=== PATIENT | female | born 1985 | race Caucasian/White ===

== ENCOUNTER 2023-05-09 09:45 | Outpatient (CLI) | payer BC, SELFPAY | END 2023-05-09 09:46 | disposition home or self-care (01) | PROVIDERS: PCP Physician Assistant Medical; Visit Provider Physician Assistant Medical | DX: E66.01 Morbid (severe) obesity due to excess calories (principal); E03.8 Other specified hypothyroidism; Z13.6 Encounter for screening for cardiovascular disorders | CPT/HCPCS: 80053; 80061; 82728; 84443 ==

== ENCOUNTER 2023-06-05 12:12 | Outpatient (CLI) | payer BC, SELFPAY | END 2023-06-05 12:13 | disposition home or self-care (01) | LOC: NFLDREF 06-10 11:53 | PROVIDERS: PCP Physician Assistant Medical; Referring Provider Physician Assistant Medical; Visit Provider Family Medicine | DX: D68.51 Activated protein C resistance (principal); R00.0 Tachycardia, unspecified; J06.9 Acute upper respiratory infection, unspecified; G47.33 Obstructive sleep apnea (adult) (pediatric); B99.9 Unspecified infectious disease; J32.9 Chronic sinusitis, unspecified | CPT/HCPCS: 85651 ==

== ENCOUNTER 2023-09-24 10:30 | Outpatient (CLI) | payer BC, SELFPAY ==
--- OUTSIDE RECORDS SUMMARY | 2023-09-24 10:34 | XMS_ITS | Encounter Summary ---
Author Name Unknown Organization [facility] Address [address] [address] Phone Care Team Providers Care Saas Architect Name Role Phone Unavailable Primary Care Provider Unavailabl e Encounter Details Date Type Department Care Team (Latest Contact Info) Description 08/27/2023 Travel Social History Tobacco Use Types Packs/Day Years Used Date Smoking Tobacco: Never Smokeless Tobacco: Never Sex and Gender Information Value Date Recorded Sex Assigned at Not on file Gender Identity Not on file Sexual Orientation Not on file Job Start Date Occupation Industry Not on file Not on file Not on file documented as of this encounter Plan of Treatment Not on file documented as of this encounter Visit Diagnoses Not on filedocumented in this encounter
--- OUTSIDE RECORDS SUMMARY | 2023-09-24 10:34 | XMS_ITS | Clinical Summary ---
Author Name Unknown Organization [facility] Address [address] [address] Phone Care Team Providers Care Control Officer Name Role Phone Unavailable Primary Care Provider Unavailabl e Allergies Active Allergy Reactions Criticality Noted Date Comments Amoxicillin Hives High 03/20/2023 Medications Medication Sig Dispensed Refills Start Date End Date Status gabapentin (Neurontin) 300 MG capsule 0 03/20/2023 Active Cetirizine HCl 10 MG capsule Cetirizine Oral po bid active 0 Active omeprazole (PriLOSEC) 40 MG delayed-release capsule as needed. 0 Active sulfamethoxazole-t rimethoprim (Bactrim DS, Septra DS) 800-160 MG oral tabletIndications: Infection Take 1 Tablet by mouth two times a day for 7 days. Indications: Infection 14 Tablet 0 08/27/2023 09/03/2023 fluconazole (Diflucan) 150 MG tabletIndications: Infection Take 1 Tablet by mouth one time for 1 dose. Indications: Infection 1 Tablet 0 08/27/2023 08/27/2023 predniSONE (Deltasone) 20 MG tabletIndications: Swelling of eyelid, left Take 2 Tablets by mouth one time a day for 5 days. Take with food. 10 Tablet 0 08/27/2023 09/01/2023 Encounters Date Type Department Care Team Description 08/27/2023 10:00 AM INORGANIC CHEMIST Office Visit [facility] [address] [facility] [address] [place] [address] Joyce Carlton, HOBBER, NEWS COPY EDITOR Swelling of eyelid, left (Primary Dx) 08/27/2023 Travel from Last 3 Months Social History Tobacco Use Types Packs/Day Years Used Date Smoking Tobacco: Never Smokeless Tobacco: Never Tobacco Cessation:Counseling Given: Not Answered Sex and Gender Information Value Date Recorded Sex Assigned at Not on file Gender Identity Not on file Sexual Orientation Not on file Job Start Date Occupation Industry Not on file Not on file Not on file Obstetrics History Last Filed Vital Signs Vital Sign Reading Time Taken Comments Blood Pressure 118/80 08/27/2023 9:58 AM INORGANIC CHEMIST Pulse 89 08/27/2023 9:58 AM INORGANIC CHEMIST Temperature 37.5 ??C (99.5 ??F) 08/27/2023 9:58 AM CS T Respiratory Rate 18 08/27/2023 9:58 AM INORGANIC CHEMIST Oxygen Saturation 98% 08/27/2023 9:58 AM INORGANIC CHEMIST Inhaled Oxygen Concentration - - Weight 118.4 kg (261 lb 0.4 oz) 08/27/2023 9:58 AM INORGANIC CHEMIST Height - - Body Mass Index - - Plan of Treatment Health Maintenance Due Date Last Done Comments Cervical Cancer Screening 1983 Hepatitis B Vaccine (Standin g Order) (1 of 3 - 3-dose series) 1983 Last pap w/ HPV Testing 1983 Last pap w/o HPV Testing 1983 MAMMO,SCREEN 1983 COVID-19 Vaccine (#1) 1983 PERTUSSIS (Standing Order) 2002 TETANUS (Standing Order) 2002 Influenza Vaccine Seasonal (Standing Order) (#1) 2023 HPV Vaccine (Standing Order) Aged Out No longer eligible based on patient's age to complete this topic Pneumococcal/PCV20 Vaccine: Pediatrics (2-5 yrs) and At-Risk Patients (6-64 yrs) (Standing Order) Aged Out No longer eligible b ased on patient's age to complete this topic
--- OUTSIDE RECORDS SUMMARY | 2023-09-24 10:35 | XMS_ITS | Encounter Summary ---
Author Name Unknown Organization [facility] Address [address] [address] Phone Care Team Providers Care Treating Engineer Helper Name Role Phone Unavailable Primary Care Provider Unavailabl e Reason for Visit * Reason Comments Eye Problem Left eyelid - starte d on the - Encounter Details Date Type Department Care Team (Late st Contact Info) Description 08/27/2023 10:00 AM STAIN APPLICATOR Office Visit [facility] [address] [facility] [facility] [address] [place] [address] Joyce Carlton APRN, LIGHT OUT EXAMINER [address] [place] [address] Swelling of eyelid, left (Primary Dx) Social History Tobacco Use Types Packs/Day Years Used Date Smoking Tobacco: Never Smokeless Tobacco: Never Tobacco Cessation:Counseling Given: Not Answered Sex and Gender Information Value Date Recorded Sex Assigned at Not on file Gender Identity Not on file Sexual Orientation Not on file Job Start Date Occupation Industry Not on file Not on file Not on file documented as of this encounter Last Filed Vital Signs Vital Sign Reading Time Taken Comments Blood Pressure 118/80 08/27/2023 9:58 AM STAIN APPLICATOR Pulse 89 08/27/2023 9:58 AM STAIN APPLICATOR Temperature 37.5 ??C (99.5 ??F) 08/27/2023 9:58 AM CS T Respiratory Rate 18 08/27/2023 9:58 AM STAIN APPLICATOR Oxygen Saturation 98% 08/27/2023 9:58 AM STAIN APPLICATOR Inhaled Oxygen Concentration - - Weight 118.4 kg (261 lb 0.4 oz) 08/27/2023 9:58 AM STAIN APPLICATOR Height - - Body Mass Index - - documented in this encounter Ordered Prescriptions Prescription Sig Dispensed Refills Start Date End Da predniSONE (Deltasone) 20 MG tabletIndications:Swell ing of eyelid, left Take 2 Tablets by mouth one time a day for 5 days. Take with food. 10 Tablet 0 08/27/2023 09/01/2023 fluconazole (Diflucan) 150 MG tabletIndications:Infec tion Take 1 Tablet by mouth one time for 1 dose. Indications: Infection 1 Tablet 0 08/27/2023 08/27/2023 sulfamethoxazole-trimet hoprim (Bactrim DS, Septra DS) 800-160 MG oral tabletIndications:Infec tion Take 1 Tablet by mouth two times a day for 7 days. Indications: Infection 14 Tablet 0 08/27/2023 09/03/2023 documented in this encounter Progress Notes * Joyce Carlton, COMMUNITY RELATIONS SPECIALIST, LIGHT OUT EXAMINER - 08/27/2023 10:00 AM CST Chief Complaint Patient presents with ??? Eye Problem Left eyelid - started on the - History of Present Illness: Soni Foster is a 38 year old female presenting with complaint of having left eyelid swelling and redness. Patient reports on [place] she wore some old eyeliner and noticed she had some increase inflammation so she took it off and wash it off. Reports she woke up after that with increasedswelling in her left eye lid. Reports the swelling is not resolving. Reports she did a video visit yesterday and they prescribed an ointment for possible stye that she started to use. Reports she is staying here in [place] area at her cabin and reports the redness and swelling has continued. She has been using some moist compresses on there and is not wearing any make-up. Denies fever, chills, eye discharge or vision problems Review of Systems Constitutional: Negative for chills and fever. Eyes: Negative for discharge, redness and visual disturbance. Left eyelid swelling No past medical history on file. No past surgical history on file. Current Outpatient Medications Medication Sig ??? gabapentin (Neurontin) 300 MG capsule ??? Cetirizine HCl 10 MG capsule Cetirizine Oral po bid active ??? omeprazole (PriLOSEC) 40 MG delayed-release capsule as needed. No current facility-administered medications for this visit. Amoxicillin Social History Tobacco Use ??? Smoking status: Never ??? Smokeless tobacco: Never Substance Use Topics ??? Alcohol use: Not on file Objective: Vitals: 08/27/23 0958 BP: 118/80 Pulse: 89 Temp: 37.5 ??C (99.5 ??F) TempSrc: Tympanic Resp: 18 Weight: 261 lb 0.4 oz (118.4 kg) SpO2: 98% Physical Exam Constitutional: General: She is not in acute distress. Eyes: Conjunctiva/sclera: Conjunctivae normal. Comments: Left eyelid swelling, erythema, inflammation Cardiovascular: Rate and Rhythm: Normal rate and regular rhythm. Pulmonary: Effort: Pulmonary effort is normal. Breath sounds: Normal breath sounds and air entry. Neurological: Mental Status: She is alert. Psychiatric: Behavior: Behavior is cooperative. ASSESSMENT/PLAN: (H02.846) Swelling of eyelid, left (primary encounter diagnosis) Prescribed (Diflucan if needed for vaginitis) sulfamethoxazole-trimethoprim (Bactrim DS, Septra DS) 800-160 MG oral tablet Take 1 Tablet by mouthtwo times a day for 7 days. Indications: Infection ??? fluconazole (Diflucan) 150 MG tablet Take 1 Tablet by mouth one time for 1 dose. Indications: Infection ??? predniSONE (Deltasone) 20 MG tablet Take 2 Tablets by mouth one time a day for 5 days. Take with food. No current facility-administered medications for this visit. Discussed using moist compresses to the eye, use of antihistamine. Monitor for worsening symptoms and follow-up if symptoms worsen or do not improve. Joyce Carlton APRN, LIGHT OUT EXAMINER 08/27/2023 N APPLICATOR documented in this encounter Plan of Treatment Not on file documented as of this encounter Visit Diagnoses Diagnosis Swelling of eyelid, left- Primary documented in this encounter Historical Medications * This list may reflect changes made after this encounter. Medication Sig Dispensed Refills Start Date End Date omeprazole (PriLOSEC) 40 MG delayed-release capsule as needed. 0 Cetirizine HCl 10 MG capsule Cetirizine Oral po bid active 0 gabapentin (Neurontin) 300 MG capsule 0 03/20/2023 added in this encounter
== END 2023-09-24 10:31 | disposition home or self-care (01) ==
PROVIDERS: PCP Physician Assistant Medical; Visit Provider Family Medicine
DX: Z01.818 Encounter for other preprocedural examination (principal); J32.9 Chronic sinusitis, unspecified; R11.2 Nausea with vomiting, unspecified; R50.9 Fever, unspecified
CPT/HCPCS: 80053; 83690; 87045; 87046; 87338; 87427; 87493; 87505; 87798

== ENCOUNTER 2023-11-05 10:45 | Outpatient (RCR) | payer BC, SELFPAY | END 2024-03-04 23:59 | disposition home or self-care (01) | PROVIDERS: PCP Physician Assistant Medical; Visit Provider Orthopaedic Surgery | DX: S83.282A Other tear of lateral meniscus, current injury, left knee, initial encounter (principal); S83.281A Other tear of lateral meniscus, current injury, right knee, initial encounter; Z51.89 Encounter for other specified aftercare; M17.11 Unilateral primary osteoarthritis, right knee | CPT/HCPCS: 97032; 97110; 97116; 97140; 97161 ==

== ENCOUNTER 2023-12-29 07:37 | Outpatient (CLI) | payer BC, SELFPAY ==
--- OUTSIDE RECORDS SUMMARY | 2023-12-29 07:40 | XMS_ITS | Clinical Summary ---
Author Name Unknown Organization [facility] [employer] [facility] Address [address] [address] Phone Care Team Providers Care Business Coordinator Name Role Phone Unavailable Primary Care Provider Unavailabl e Allergies Active Allergy Reactions Criticality Noted Date Comments Amoxicillin Hives High 03/20/2023 Medications Medication Sig Dispensed Refills Start Date End Date Status gabapentin (Neurontin) 300 MG capsule 03/20/2023 Active Cetirizine HCl 10 MG capsule Cetirizine Oral po bid active Active omeprazole (PriLOSEC) 40 MG delayed-release capsule as needed. Active Social History Tobacco Use Types Packs/Day Years [...] Comments Blood Pressure 118/80 08/27/2023 9:58 AM PRINTED CIRCUIT BOARD PREASSEMBLER Pulse 89 08/27/2023 9:58 AM PRINTED CIRCUIT BOARD PREASSEMBLER Temperature 37.5 ??C (99.5 ??F) 08/27/2023 9:58 AM CS T Respiratory Rate 18 08/27/2023 9:58 AM PRINTED CIRCUIT BOARD PREASSEMBLER Oxygen Saturation 98% 08/27/2023 9:58 AM PRINTED CIRCUIT BOARD PREASSEMBLER Inhaled Oxygen Concentration - - Weight 118.4 kg (261 lb 0.4 oz) 08/27/2023 9:58 AM PRINTED CIRCUIT BOARD PREASSEMBLER Height - - Body Mass Index - - Plan of Treatment Health Maintenance Due Date Last Done Comments Cervical Cancer Screening 1983 Last pap w/ HPV Testing 1983 Last pap w/o HPV Testing 1983 MAMMO,SCREEN 1983 Hepatitis B Vaccine (Standin g Order) (1 of 3 - 19+ 3-dose series) 2002 PERTUSSIS (Standing Order) 2002 TETANUS (Standing Order) 2002 COVID-19 Vaccine (2022-2 4 season) 2023 Influenza Vaccine Seasonal (Standing Order) (#1) 2023 HPV Vaccine (Standing Order) Aged Out No longer eligible based on patient's age to complete this topic Pneumococcal/PCV20 Vaccine: Pediatrics (2-5 yrs) and At-Risk Patients (6-64 yrs) (Standing Order) Aged Out No longer eligible b ased on patient's age to complete this topic
--- OUTSIDE RECORDS SUMMARY | 2023-12-29 07:40 | XMS_ITS | Data Portability ---
Author Name Unknown Address [address] [place] [address] Phone [phone] Organization [place] [facility], [facility] Address [address] [place] [address] Care Team Providers Care Quality Assurance Tech Name Role Phone JAKE NUNES Primary Care Provider JUANA MENESES Referring Provider Assessment Encounter Date Assessment Date Assessment LastModified by Organization Details LastModified Time 05/10/2020 05/10/2020 Today I spent a considerable amount of time discussing the patient's past medical and personal history, as well as performing a physical examination all of which is documented in it's entirety in the electronic health record. I reviewed the pathophysiology of the disorder, potential contributing and risk factors as well as treatment options to address their complaints. I reviewed their most current sleep study documentation. Today I reviewed treatment options to address obstructive sleep apnea. We touched on CPAP use and focused on the option of an oral appliance, which was the reason for today's visit. I do believe that a mandibular advancement oral appliance is a reasonable treatment option. Today we discussed risks and benefits of oral appliance therapy. Informed consent and cost of care was reviewed both verbally and in written form. We did begin the fabrication process today for a custom fit Dorsal mandibular advancement oral appliance. Today greater than 50% of the 60 minute visit was spent counseling and coordinating care. This may have included a review of the diagnosis, contributing factors, limitations and expectations, risks including lack of treatment efficacy, jaw symptoms, potential change in their dental occlusion, and patient intolerance of wearing the appliance. Cost of care and insurance coverage was reviewed and discussed with the patient. [email or web address] Not available 05/10/2020 16:44:26 06/22/2020 06/22/2020 Patient was seen today for follow-up and insertion of a Dorsal intraoral mandibular advancement appliance. Diagnosis and contributing factors were reviewed. Questions were answered. Today the intraoral appliance was fit to patient comfort. Specifically, adjustments were made to balance the occlusion and reduce the retention. Instructions on proper use and care were discussed/reviewed both written and verbally. Potential side effects were reviewed. The patient was advised to discontinue oral appliance use should they experience untoward side effects or be unable to return for follow-up care. The patient was advised to return in 3-4 weeks to reassess their progress and continue their treatment plan as previously outlined. Today greater than 50% of the 25 minute visit was spent counseling and coordinating care. This may have included a review of the diagnosis, contributing factors, home self-management strategies and the limitations and expectations. Not available 06/22/2020 16:47:03 06/26/2020 06/26/2020 I adjusted #7. Soni stated that the appliance felt much better. Not available 06/27/2020 07:31:06 07/12/2020 07/12/2020 Today I reviewed the diagnosis, contributing factors and treatment options. Questions were answered. Soni is interested to see if advancing the appliance could help with decreasing her intense dreams. I demonstrated how to adjust the appliance and advised her to advance in increments of 5 bilaterally as needed. At this time, the patient feels that the use of their mandibular advancement appliance has improved sleep quality, daytime tiredness and subjective report of snoring. At this time I've asked them to contact their sleep physician to consider updating a PSG/HST to objectively verify the effectiveness of the appliance. I've suggested that they follow-up with me to review the results of the study and determine the need for additional appliance adjustment at that time. Should apnea be sufficiently resolved we will at that time begin a long--term follow-up schedule while we monitor for jaw symptoms and/or changes in occlusion. I've suggested that the patient return for follow-up care after their sleep study. Today greater than 50% of the 25 minute visit was spent counseling and coordinating care. This may have included a review of the diagnosis, contributing factors, home self-management strategies and the limitations and expectations. Not available 07/12/2020 10:43:06 Plan of Treatment Reminders Order Date Submit Date Provider Last Modified By Organization Details Last Modified Time Details Appointments None recorded. Lab None recorded. Referral sleep medicine referral 2019 020 LISET Nunes, [address] [place], [address], 0 10:54:34 Procedures None recorded. Surgeries None recorded. Imaging None recorded. Medication Orders None recorded. Patient TargetsNo targets recorded. Patient InstructionsNo instructions recorded. Reason for Referral Sleep Medicine Referral for Obstructive sleep apnea of adult Pt is using an oral appliance for DANIELLE and needs sleep study to verify effectiveness Referring Physician: Светлана Block, Pain Management, Encounter Date: 07/12/2020 Problems Name Status Onset Date Resolution Date Notes Provider Name and Address Organization Details Recorded Time Obstructive sleep apnea of adult Active 05/10/20 20 AHI=8.1 Светлана felix [facility] 05/10/2020 16:43:57 Snoring Active 05/10/20 20 Светлана felix [facility] 05/10/2020 16:43:48 Problem Notes None recorded. Procedures Surgical History Date Name Laterality Status Provider Name and Address Organization Details Recorded Time 0 Oral appliance therapy for sleep apnea completed Jhonathan felix [facility] 06/22/2020 15:45:39 Imaging Results None recorded. Procedure Notes None recorded. Medical Equipment None Reported. Allergies Allergen ID Allergen Name Allergen Category Reaction Reaction Severity Criticality Documentation Date Start Date Code Code System Note Provider Name and Address Organization Details Recorded Time 49049 amoxicill in medicatio n Not available Not available Not available 05/10/2020 723 RxNorm Fernando felix [facility] 0 14:52:04 57131 hydrocodo ne Not available Not available Not available Not available 05/10/2020 5489 RxNorm Fernando felix [facility] 0 14:52:12 Medications Name Sig Start Date Stop Date Status Note LastModified by Organization Details LastModified Time clindamycin HCl 300 mg capsule 05/10 completed Not Available Not Available Not Available fluconazole 150 mg tablet 05/10 completed Not Available Not Available Not Available sulfamethoxazole 800 mg-trimethoprim 160 mg tablet 05/10 completed Not Available Not Available Not Available omeprazole 40 mg capsule,delayed release active Not Available Not Available Not Available meclizine 25 mg tablet 05/10 completed Not Available Not Available Not Available baclofen 10 mg tablet active Not Available Not Available Not Available gabapentin 300 mg capsule active Not Available Not Available N ot Available omeprazole 20 mg capsule,delayed release 05/10 completed Not Available Not Available Not Available dextroamphetamin e-amphetamine ER 10 mg 24hr capsule,extend release active Not Available Not Available Not Available hydroxyzine HCl 25 mg tablet 05/10 completed Not Available Not Available Not Available cefuroxime axetil 500 mg tablet 05/10 completed Not Available Not Available Not Available sertraline 50 mg tablet active Not Available Not Available Not Available oxycodone 5 mg tablet 05/10 completed Not Available Not Available Not Available hydroxyzine pamoate 25 mg capsule active Not Available Not Available Not Available neomycin-polymyx in-hydrocort 3.5 mg-10,000 unit/mL-1 % ear drops,susp 05/10 completed Not Available Not Available Not Available Vitals Date Recorded Body temperature Heart rate Body height Body mass index (BMI) Body weight Systolic blood pressure Diastolic blood pressure Provider Name and Address Organization Details Last Updated DateTime 0 97.3 [degF] 86 /min 162.56 cm 44.6 kg/m2 799375. 02 g 150 mm[Hg] 90 mm[Hg] Fernando felix [place] [facility] 0 14:53:04 Date Recorded Body height Body mass index (BMI) Body weight Body temperature Provider Name and Address Organization Details Last Updated DateTime 06/22/2020 162.56 cm 44.6 kg/m2 817629.02 g 94.6 [degF] Jhonathan felix [place] [facility] 06/22/2020 15:41:20 Date Recorded Body height Heart rate Provider Name and Address Organization Details Last Updated DateTime 06/26/2020 162.56 cm 97 /min JENNIFER Lyon [facility] 06/26/2020 15:02:17 Date Recorded Body height Body temperature Heart rate Systolic blood pressure Diastolic blood pressure Provider Name and Address Organization Details Last Updated DateTime 07/12/2020 162.56 cm 97.9 [degF] 71 /min 133 mm[Hg] 77 mm[Hg] JENNIFER Lyon [facility] 0 09:44:34 Social History Question Answer Notes LastModified by Organizat ion Details LastModified Time Tobacco Smoking Status Never Smoker Fernando Cowanferny felix [facility] 05/10/2020 14:55:44 What Is Your Level Of Alcohol Consumption? Occasional Information not available 05/10/2020 What Is Your Level Of Caffeine Consumption? Moderate Information not available 05/10/2020 What Type Of Diet Are You Following? 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 Mental Status None recorded. Family History Relationship Description Onset Age of this Age Resolved Age Notes Father No current problems or disability Mother No current problems or disability Medical History Condition Response Coronary Artery Disease N Other N Gout N Chronic fatigue syndrome N Hyperthyroidism N Premenstrual syndrome (PMS) N MRSA N Emphysema N Head Trauma/Injury N Irritable bowel syndrome N Glaucoma N Lung Disease N COPD N Depression Y Hypothyroidism N Pneumonia N Pacemaker N Obstructive Sleep Apnea Y Anxiety Disorder N Autoimmune disease N Muscle, Joint, or Bone Problems N Vision or Eye Problems N Arthritis N Serious Illness or Injuries N Acid Reflux (GERD) Y Cancer N Stroke N Eating disorder N Neck Injury N Back Injury N High Cholesterol N History of chemotherapy N Neurologic Disorder N Liver Disease N Organ Transplant N Rheumatoid Arthritis N Headaches Y Fibromyalgia N Kidney Disease N Allergies/Hayfever Y Post traumatic stress disorder (PTSD) N Parkinson's Disease N Migraines N Brain Tumors N Anemia N Multiple Sclerosis N Immune System Disorder N Meningitis N Pancreatic disease N Heart Attack ([place]) N Stomach Ulcers N Back pain Y Diabetes N Bleeding Disorder Y Seizures/Epilepsy N Sjogren's syndrome N Tuberculosis N AIDS/HIV N History of radiation therapy N Hyperlipidemia N Dementia N Asthma N Physical or sexual abuse N Substance Abuse N Peripheral Vascular Disease N Psoriasis N Reflux/GERD Y Mental Problems N Vertigo N Sleep Disorder N Aneurysm N Hepatitis N Heart Disease N Neuropathy N Pulmonary Embolism N Hypertension N Osteoporosis N Gynecological HistoryNo gynecological history recorded. Obstetrics History GPAL:G 0 P 0 0 0 0 Past Encounters Encounter ID Performer Location Encounter Start Date Encounter Closed Date Diagnosis/Indication Diagnosis SNOMED-CT Code [id number] Светлана Vasquezlakeisha Ray e [address] [place] [address] 05/10/2020 14:27:40 05/10/2020 17:01:34 Obstructive sleep apnea of adult 5986772117398 Snoring 18409148 [id number] Светлана Mik Ray e [address] [place] [address] 06/22/2020 15:38:11 06/22/2020 16:31:54 Snoring 61612449 Obstructiv e sleep apnea of adult 8975002326348 [id number] Светлана Mik Ray e [address] [place] [address] 06/26/2020 14:59:28 06/26/2020 16:41:30 Snoring 38026062 Obstructiv e sleep apnea of adult 2872303862102 [id number] Светлана Mik Ray e [address] [place] [address] 07/12/2020 09:31:29 07/12/2020 10:41:37 Snoring 56014653 Obstructiv e sleep apnea of adult 3271860246952 Health Concerns Section Related Observation LastModified by Organization Detai ls LastModified Time None Recorded Concern Status LastModified by Organization Details LastModified Time None Recorded Advance Directives Directive None Recorded Payers Encounter Date Sequence Insurance Name Policy Number Policy [place] Covered Member ID Santa Member ID Guarantor Name 07/12/2020 1 [facility] [id number] Madi Foster [id number] Madi Foster 06/26/2020 1 [facility] [id number] Madi Foster [id number] Madi Foster 06/22/2020 1 [facility] [id number] Madi Foster [id number] Madi Foster 05/10/2020 1 [facility] [id number] Madi Foster [id number] Madi Foster Notes Date Note Type Note Provider Name and Address Organization Details Recorded Time 05/10/2020 text/html HPI Notes: Sleep Apnea Reported by patient. Severity/status: mild; severity of apnea: AHI=8.1; date of last [id number]; lowest oxygen saturation 80-91% Patient concerns - Oral appliance therapy oral appliance therapy is ; intolerant of CPAP Prior History obesity temporomandibular joint symptoms pain in the jaw; grinding teeth Interference: loud snoring Aggravating factors: worse with certain sleeping positions Prior opinion pulmonology Patient presents today for evaluation of the possible use of a mandibular advancement oral appliance to address their mild obstructive sleep apnea and snoring. Patient has previously not treated. Today their [place] Sleepiness Scale score was a 14. The patient is predominantly a side sleeper. There is a known history of TMJ symptoms including jaw joint noises and jaw pain. There is awareness of clenching and/or grinding of their teeth. Soni reports that she is working on improving her health. In addition to sleep apnea, she has been diagnosed with fatty liver disease. She also has had significant weight gain recently. Her sleep study was May 2019, and she has not treated her apnea yet. She is not interested in a CPAP. She is planning on getting a new crown on #2 in the future. She goes to a chiropractor for neck adjustments. JENNIFER Swanson - [facility] 05/10/2020 16:52:18 06/22/2020 text/html HPI Notes: Sleep Apnea Reported by patient. Severity/status: mild; severity of apnea: AHI=8.1; date of last [id number] 019; lowest oxygen saturation 80-91% Patient concerns - Oral appliance therapy oral appliance therapy is ; intolerant of CPAP Prior History obesity temporomandibular joint symptoms pain in the jaw; grinding teeth Interference: loud snoring Aggravating factors: worse with certain sleeping positions Prior opinion pulmonology Patient presents today for insertion of a mandibular advancement (Dorsal) oral appliance. They note no changes in symptoms which along with prior data was reviewed, updated and documented in the patient history of present illness. Had an for occipital nerve block this morning for her headaches. JENNIFER Swanson - [facility] 06/22/2020 16:47:18 06/26/2020 text/html HPI Notes: Yudy olsen is here today because splint is tight on upper right lateral when she removes the appliance JENNIFER Swanson - [facility] 06/27/2020 07:31:32 07/12/2020 text/html HPI Notes: Sleep Apnea Reported by patient. Severity/status: mild; severity of apnea: AHI=8.1; date of last [id number] 019; lowest oxygen saturation 80-91% Patient concerns - Oral appliance therapy oral appliance therapy is ; intolerant of CPAP Prior History obesity temporomandibular joint symptoms pain in the jaw; grinding teeth Interference: loud snoring Aggravating factors: worse with certain sleeping positions Prior opinion pulmonology Patient presents today for follow-up. (S)he is effectively using the mandibular advancement oral appliance. They note improved symptoms which along with prior data was reviewed, updated and documented in the patient history of present illness. Subjectively they believe the appliance to be very effective in improving sleep quality. (S)he recognizes improved daytime tiredness and improvement in restorative sleep. (S)he denies side effects including bite changes. 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 Adjustments to the oral appliance are believed to be necessary. Soni reports that she is very happy with the appliance. Her sleep has improved, and her reports that she is not snoring while wearing the appliance. She has difficulty falling asleep with the appliance if she's not tired, so she has been taking 1 mg melatonin before bed. Soni states that her anterior maxillary teeth feel a little sore in the morning when she eats but that it is not bothersome. [place] today is 7. JENNIFER Swanson - [facility] 07/12/2020 10:45:10 OBGyn Episode No OBEpisode recorded.
--- OUTSIDE RECORDS SUMMARY | 2023-12-29 07:40 | XMS_ITS | Continuity of Care Document ---
Author Name Unknown Organization [facility] Address [address] [address] [place] [address] Phone Care Team Providers Care Bottom Loader Name Role Phone Leigh Ann Muñoz CRNA Unavailable Unavai lable Allergies, Adverse Reactions, Alerts Substance Reaction Status Criticality amoxicillin Active No Information oxycodone Active No Information codeine Active No Information POTASSIUM CLAVULANATE Hives Active No Inf ormation oxycodone Itching Active No Information No Known Allergies Resolved No Inform ation adhesive tape ItchingItching Resolved No Informati on AMOXICILLIN TRIHYDRATE HivesHives Resolved No In formation codeine ItchingItching Resolved No Informatio n oxycodone ItchingItching Resolved No Informatio n oxycodone HivesHives Resolved No Information oxycodone ItchingItching Resolved No Informatio n oxycodone ItchingItching Resolved No Informatio n hydrocodone ItchingItching Resolved No Informatio n amoxicillin Resolved No Information Medications Medication Instructions Dosage Effective Dates (start - stop) Status Comments CYCLOBENZAPRINE HCL ER (unknown strength) take 1 capsule by oral route every day Not Available - Active gabapentin 300 mg capsule take 1 capsule by oral route 3 times every day 300 MG - Active Zyrtec 10 mg capsule take 1 by Oral route 2 times every day 1 - Active sertraline 50 mg tablet take 1 Tablet by oral route every day 50 MG - No Longer Active hydroxyzine HCl 25 mg tablet take 1 tablet by oral route 2 times every day 25 MG - No Longer Active omeprazole 40 mg capsule,delayed release take 1 capsule by oral route 2 times every day before a meal 40 MG - No Longer Active Procedures Procedure Date Colonoscopy Flex; Dx (may Pro) 23 Offic/outpt E&m Estab Mod-hi 2 20 Established Level 3 or 15-24 min 2019 Routine Serum Collection FibroScan Ag-immunoassay; Hep B Surface [address]; Hg & Platelet Ct Autom Alpha-fetoprotein; Serum Creatinine; Bld Ferritin Hepatitis C Antibody; Hepatic Function Panel Iron Iron Binding Capacity Prothrombin Time Virtual Visit E&m Estab Mod-hi 25-39 Min Colonoscopy Flex; W/remov Les- Colonoscopy Flex; W/bx 1/mx Ugi Endo; W/bx 1/mx Level Iv-surg Path Gross/micro Routine Serum Collection Gg; Iga, Igd, Igg, Igm, Ea C. Difficile Toxin Gene, DEN Stool Kits Given Virtual Visit E&M New Low-Mod 20-29 Min Advance Directives Directive Yes / No Effective Date File Name No Information Encounters Encounter Description Practice Location Reason(s) For Visit Diagnoses Date Provider Providers Copied on Encounter [facility], [address] [address], [place], [id number], [place] tel:[phone] Mikey [facility] No Information 3 Wanda Beltrán. [address], [place], [place], [id number], [place]. tel:[phone] Referring Provider: Haley Valdes MD, [address], [place], [address] . tel:[phone] [facility], [address] [address], [place], [id number], [place] tel:[phone] [facility] GI Symptoms or Concerns (chief complaint) Personal history of colonic polypsOther hemorrhoidsDive rticulosis of colon without diverticulitisE ncounter for screening for malignant neoplasm of colonOther hemorrhoidsDvrt clos of lg int w/o perforation or abscess w/o bleedingPersona l history of colonic polyps 0 3 Keisha De Leon. [address] [facility], [address], [id number], [place]. tel:[phone] GraySyMynddamian Hemphill PAC. tel:[phone] erring Provider: Referral Self, USE FOR SELF REFERRALS. [facility], [address] [address], [place], [id number], [place] tel:[phone] [facility] No Information 2 Supa Reinoso. [address] [facility], [address], [id number], [place]. tel:[phone] Offic/outpt E&m Estab Mod-hi 2 [facility], [address] [address], [place], [id number], [place] tel:[phone] [facility] GI Symptoms or Concerns (chief complaint) NAFLD (nonalcoholic fatty liver disease) 0 Keisha De Leon. [address] [facility], [address], [id number], [place]. tel:[phone] GrayktGoodClic Hemphill PAC. tel:[phone] erring Provider: Referral Self, USE FOR SELF REFERRALS. [facility], [address] [address], [place], [id number], [place] tel:[phone] [facility] No Information 0 Babs Valdez. [address] [facility], [address], [id number], [place]. tel:[phone] Established Level 3 or 15-24 min [facility], [address] [address], [place], [id number], [place] tel:[phone] [facility] GI Symptoms or Concerns (chief complaint) HeartburnBiliou s vomiting with nauseaDiarrhea, unspecifiedFatt y (change of) liver, not elsewhere classifiedPerso nal history of colonic polyps 0 Kyler Bustillo. [address] [facility], [address], [id number], [place]. tel:[phone] Mukti Hemphill PAC. tel:[phone] erring Provider: Rizwan Hemphill DO, [address] [place] [address], [place], [address]. tel:[phone] [facility], [address] [address], [place], [id number], [place] tel:[phone] [facility] Fatty (change of) liver, not elsewhere classified 0 Keisha De Leon. [address] [place] [address], [id number], [place]. tel:[phone] Mukti Hemphill PAC. tel:[phone] erring Provider: Referral Self, USE FOR SELF REFERRALS. Virtual Visit E&m Estab Mod-hi 25-39 Min [facility], [address] [address], [place], [id number], [place] tel:[phone] [facility] GI Symptoms or Concerns (chief complaint) NAFLD (nonalcoholic fatty liver disease) 0 Keisha De Leon. [address] [place] [address], [id number], [place]. tel:[phone] Mukti Hemphill PAC. tel:[phone] erring Provider: Referral Self, USE FOR SELF REFERRALS. [facility], [address] [address], [place], [id number], [place] tel:[phone] [facility] Fatty liver 0 Kyler Bustillo. [address] [place] [address], [id number], [place]. tel:[phone] Lee Hemphill PAC. tel:[phone] [facility], [address] [address], [place], [id number], [place] tel:[phone] [facility] GastropathyDuod enitisColorecta l polypsInternal hemorrhoidsEros ion of ileumBenign neoplasm of transverse colonDuodenitis without bleedingDisease of stomach and duodenum, unspecifiedUlce r of intestine 0 0 Kyler Bustillo. [address] [place] [address], [id number], [place]. [phone] Lee Hemphill PAC. tel:[phone] erring Provider: Rizwan Hemphill DO, [address] [address], [place], [address]. tel:[phone] [facility], [address] [address], [place], [id number], [place] tel:[phone] [facility] Diarrhea, unspecified 0 Kyler Bustillo. [address] [place] [address], [id number], [place]. tel:[phone] Referring Provider: Rizwan Hemphill DO, [address] [address], [place], [address]. tel:[phone] [facility], [address] [address], [place], [id number], [place] tel:[phone] [facility] No Information 0 Kyler Bustillo. [address] [place] [address], [id number], [place]. tel:[phone] Referring Provider: Referral Self, USE FOR SELF REFERRALS. [facility], [address] [address], [place], [id number], [place] tel:[phone] [facility] Diarrhea, unspecified type 0 Kyler Bustillo. [address] [place] [address], [place], [id number], [place]. tel:[phone] Virtual Visit E&M New Low-Mod 20-29 Min [facility], [address] [address], [place], [place], [id number], [place] tel:[phone] [facility] Comment (chief complaint) Bilious vomiting with nauseaDiarrhea, unspecified typeHeartburnRU Q painRectal bleedingBloatin gHiccupsIndiges tion 0 Kyler Bustillo. [address] [facility], [facility] [address], [place], [place], [id number], [place]. tel:[phone] Referring Provider: Lee Hemphill PAC, [address], [place], [address]. tel:[phone] [facility], [address] [address], [place], [place], [id number], [place] tel:[phone] [facility] No Information 0 Babs Valdez. [address] [facility] [address], [place], [id number], [place]. tel:[phone] Family History Family Member Type Diagnosis Age At Onset Mother Problem (finding) malignant neoplasm of s kin Mother Problem (finding) Thyroid disorder Mother Problem (finding) Colon polyps Daughter Problem (finding) Asthma Immunizations Vaccine Date Status Comments Seasonal, quadrivalent, recombinant, injectable influenza vaccine, preservative free administered Note: [facility] bi-direct ional interface ; Source: Other Registry tetanus toxoid, reduced diphtheria toxoid, and acellular pertussis vaccine, adsorbed administered Note: [facility] b i-directional interface ; Source: Other Registry SARS-COV-2 (COVID-19) vaccin e, mRNA, spike protein, LNP, preservative free, 30 mcg/0.3mL dose administered Note: [facility] bi-direct ional interface ; Source: Other Registry SARS-COV-2 (COVID-19) vaccin e, mRNA, spike protein, LNP, preservative free, 30 mcg/0.3mL dose administered Note: [facility] bi-direct ional interface ; Source: Other Registry SARS-COV-2 (COVID-19) vaccin e, mRNA, spike protein, LNP, preservative free, 30 mcg/0.3mL dose administered Note: [facility] bi-direct ional interface ; Source: Other Registry Seasonal, quadrivalent, recombinant, injectable influenza vaccine, preservative free administered Note: [facility] bi-direct ional interface ; Source: Other Registry Afluria Qd administered Note: [facility] bi-directional interface ; Source: Other Registry Afluria Qd administered Note: [facility] bi-directional interface ; Source: Other Registry Fluzone Quad 6mo or older administered Note: [facility] bi-direct ional interface ; Source: Other Registry Payers Payer name Insurance type Covered green party ID [id number] Social History Type Description Quantity Date Captured Comments Sex Female Smoking Status No Information Chief Complaint And Reason For Visit No Information Reason For Referral Reason For Referral No Information Plan Of Treatment Date Type Action Status Referral Ordered: Creatinine Appointment date/timeframe: -today ordered Referral Ordered: PT/INR Appointment date/timeframe: -today ordered Referral Ordered: Hep C Ab Appointment date/timeframe: -today ordered Referral Ordered: Hepatic Function Panel Appointment date/timeframe: -today ordered Referral Ordered: AFP, Serum, Tumor Marker Appointment date/timeframe: -today ordered Referral Ordered: Iron/TIBC Appointment date/timeframe: -today ordered Referral Ordered: [id number] Phenotype Appointment date/timeframe: -today ordered Referral Ordered: follow-up visit with Haley Valdes MD 6 Months Appointment date/timeframe: 6 Months ordered Referral Ordered: FibroScan Appointment date/timeframe: 03/23/2020 ordered Referral Ordered: Ferritin Appointment date/timeframe: -today ordered Referral Ordered: Hep B surface Ag Appointment date/timeframe: -today ordered Referral Ordered: CBC Appointment date/timeframe: -today ordered Referral Ordered: follow-up visit with Haley Valdes MD ordered Referral Ordered: referred to medical genetics 2 colon adenomas removed at age 34 ordered Referral Ordered: Stool Culture Appointment date/timeframe: 02/17/2020 ordered Referral Ordered: EGD Appointment date/timeframe: 02/09/2020 ordered Referral Ordered: Colonoscopy Appointment date/timeframe: 02/09/2020 ordered Referral Ordered: CT Enterography WITH Contrast Appointment date/timeframe: 02/16/2020 ordered Referral Ordered: H. pylori IgG, Abs Appointment date/timeframe: 02/01/2020 ordered Referral Ordered: Celiac: TTG IgA + Total IgA Appointment date/timeframe: 02/01/2020 ordered Referral Ordered: Ova + Parasites Appointment date/timeframe: 02/17/2020 ordered History Of Present Illness Encounter Date Complaint History Of Prese nt Illness GI Symptoms or Concerns GI Symptoms or Concerns The carmen ent is a 35-year-old woman consents today for virtual follow up of fatty liver. Patient was seen by Dr Chávez for evaluation of upper GI symptoms, specifically atypical RUQ abdominal pain and nausea. She underwent CT abdomen for further evaluation of her pain. CT revealed an evidence of mild fatty infiltration of the liver. Liver parenchyma appeared normal otherwise. Spleen within normal limits. Patient was told about 11 years ago that she has fatty liver. Patient has had mildly abnormal ALT x1 ULN over the past few years. PLT count within normal limits. She reports significant family history of fatty liver. She drinks couple times a month. Serology work-up of chronic liver disease, including HCV/HBV serology, iron studies and A1AT phenotype negative. Autoimmune markers not studied since the pattern of LFT's is not consistent with autoimmune hepatitis. ALT is only mildly elevated at 37. She injured her knee last year, and has gained 20-25 lb over the past year. She has no known history of diabetes, hypertension or hyperlipidemia.She had a cholecystectomy on November 12, 2019. She tolerated the surgery well. Surgeon did not comment of any signs of cirrhosis / portal hypertension during surgery. Patient is asymptomatic from liver standpoints.FibroScan revealed that patient had median Liver Stiffness Score of 8.9 kilopascal (kPa) and ultrasound attenuation rate of 395 decibels/meter (dB/m). The Interquartile Range to Median ratio was 21%. GI Symptoms or Concerns The carmen ent is a 35-year-old female who had a virtual visit performed today for followup of nausea, vomiting, and diarrhea and heartburn, right upper quadrant pain and rectal bleeding and bloating and hiccups and indigestion. Since her last GI clinic visit, she has had extensive evaluation including laboratories, stool infectious studies, upper endoscopy, colonoscopy, CT enterography. Testing was significant for some mild inflammation in the antrum and some duodenitis. Esophageal, gastric, duodenal biopsies were negative. Colonoscopy revealed 1 tiny erosion in the terminal ileum, but otherwise normal colonoscopy aside from 2 sessile serrated adenomas that were removed. Random colon biopsies were negative. A CT enterography did not reveal any bowel inflammation, but did show a small lung nodule. She saw her primary care provider for the small lung nodule and they were planning on a repeat CT scan of the chest in August. After her colonoscopy showing 2 sessile serrated adenom GI Symptoms or Concerns The carmen ent is a 34-year-old woman consents today for telephone consultation of fatty liver. Consult requested by Dr Chávez. Patient was recently seen by Dr Chávez for evaluation of upper GI symptoms, specifically atypical RUQ abdominal pain and nausea. She underwent CT abdomen for further evaluation of her pain. CT revealed an evidence of mild fatty infiltration of the liver. Liver parenchyma appeared normal otherwise. Spleen within normal limits. Patient was told about 11 years ago that she has fatty liver. She reports significant family history of fatty liver. She drinks couple drinks a month. No history of blood transfusion, IV drug use. She has two tattoos that were placed in regulated environment. She injured her knee last year, and has gained 20-25 lb over the past year. She has no known history of diabetes, hypertension or hyperlipidemia.She had a cholecystectomy on November 12, 2019. She tolerated the surgery well. Surgeon did not comment of any signs of cirrhosis / portal hypertension during surgery. Patient reports that she has had mildly abnormal AST and ALT over the past few years. PLT count within normal limits. Patient is asymptomatic from liver standpoints. Comment The patient is a 34-year-old female who I had a virtual visit performed today for evaluation of nausea and vomiting and diarrhea and heartburn and right upper quadrant pain and indigestion and bloating and rectal bleeding. The patient reports she has had many of these symptoms for most of her adult life, but these symptoms have seemed to worsen over the past 6 months. She reports the indigestion hiccups are relatively new over the past 6 months. She reports that earlier this year, she was found to have biliary colic as well as a low gallbladder ejection fraction, so she had a cholecystectomy on November 12, 2019. This was complicated by a wound infection at the umbilical laparoscopic site that was treated with antibiotics. She felt that the antibiotics worsened her GI symptoms. She reports that she recently had a CBC and CMP at [facility] that were normal. She also reports a normal TSH a couple of months ago. She reports a colonoscopy back in 2004, but she does not reca Functional Status Date Functional Assessmen t No Information Instructions Date Instruction Additional Infor mation High Fiber Diet Related to Diver ticulosis of colon without diverticulitis Colon Cancer Prevention Related to Diverticulosis of colon without diverticulitis Hemorrhoids (Internal) Related t o Diverticulosis of colon without diverticulitis Diverticulosis/Diverticulitis Re lated to Diverticulosis of colon without diverticulitis Colon Cancer Prevention Related to Personal history of colonic polyps Colon Polyps Related to Perso nal history of colonic polyps -Continue omeprazole 40 mg twice daily - can try to gradually reduce dose in the next few months Related to Heartburn -Repeat colonoscopy in 01/2023 Re lated to Personal history of colonic polyps -Patient will follow -up with Dr. Valdes for fatty liver and fibrosis seen on recent fibroscan Related to Fatty (change of) liver, not elsewhere classified -Patient will follow -up as needed if she has any recurrence of significant GI symptoms Related to Diarrhea, unspecified Colon Cancer Prevention Related to Colorectal polyps Colon Polyps Related to Color ectal polyps Hemorrhoids Related to Color ectal polyps High Fiber Diet Related to Color ectal polyps NSAIDS List Related to Color ectal polyps -Labs as ordered-Sto infectious studies-Will request results of recent labs performed at [facility]-EGD with gastric and duodenal biopsies-Colonoscopy with TI evaluation and random colon biopsies-CT enterography-Omeprazole 40 mg twice daily to see if this helps-If all of the above unrevealing, and if GI symptoms persist, then would consider gastric emptying test to check for gastroparesis, and glucose breath test to check for small intestinal bacterial overgrowth, and if these are negative, then would consider treatment for a functional bowel [id number]-fm in 2 months Related to Bilious vomiting with nausea Assessments Type Assessment Date No Information Patient Care Teams Name Effective Dates (start - stop) Status Members No Information
--- NOTE | 2023-12-29 07:45 | MM_ITS ---
Patient: AYLIN TRAORE Facility:?[facility] Patient ID:?[id number] Site Patient ID:?[id number] Site :?[id number] Study:?XRay-Breast Bilateral 3D W/CAD-12/29/2023 8:26:25 AM Ordering Physician:Eunice Final Report: BILATERAL SCREENING MAMMOGRAM WITH COMPUTER-AIDED DETECTION AND TOMOSYNTHESIS TECHNIQUE: CC and MLO views were obtained. These mammographic images have been obtained using full-field digital technique. These mammographic images were interpreted with the benefit of computer-aided detection. Breast Tomosynthesis was used in this interpretation. COMPARISON FILM: 07/25/21. FINDINGS: There are scattered areas of fibroglandular density. IMPRESSION: There is no radiographic evidence for malignancy. ASSESSMENT: BI-RADS Category 1: Negative RECOMMENDATION: Routine screening mammogram in 1 year. A lay language report of this examination will be provided to the patient. Júnior Sifuentes M.D. Diagnostic Radiologist [email or web address] DSM/sp R& Transcribed: 3:29 p.m. SP/Dictated by: Júnior Sifuentes MD @ 12/29/2023 10:09:00 AM Signed by:?Júnior Sifuentes MD @12/29/2023 3:59:27 PM (Electronic Signature)
== END 2023-12-29 07:38 | disposition home or self-care (01) ==
PROVIDERS: PCP Physician Assistant Medical; Visit Provider Physician Assistant Medical
DX: Z12.31 Encounter for screening mammogram for malignant neoplasm of breast (principal)
CPT/HCPCS: 77063; 77067

== ENCOUNTER 2024-07-26 10:30 | Outpatient (RCR) | payer BC, SELFPAY | END 2024-11-23 23:59 | disposition home or self-care (01) | PROVIDERS: PCP Physician Assistant Medical; Visit Provider Physician Assistant Medical | DX: M54.40 Lumbago with sciatica, unspecified side (principal); G89.29 Other chronic pain; H81.10 Benign paroxysmal vertigo, unspecified ear; M62.838 Other muscle spasm; M54.2 Cervicalgia; M77.8 Other enthesopathies, not elsewhere classified; Z51.89 Encounter for other specified aftercare | CPT/HCPCS: 97110; 97140; 97161 ==

== ENCOUNTER 2024-08-16 15:00 | Outpatient (RCR) | payer BC, SELFPAY ==
--- OUTSIDE RECORDS SUMMARY | 2024-08-16 14:58 | XMS_ITS | Continuity of Care Document ---
Author Name SALO Alcantar [facility] Address [address] [place] [address] Organization [facility] Address [address] [place] [address] Care Team Providers Care Steward/Stewardess Second Name Role Phone Thelma Kunz Rounding Physician PCP, None Primary Care Physician Unavailab le PCP, None Primary Care Physician Unavailab le Allergies, Adverse Reactions, Alerts Allergen Type Severity Reaction Last Updated Verified Status amoxicillin Allergy Hives February 15, 2022 Y Active codeine Allergy Nausea February 15, 2022 Y Active Medications Active Medications Medication Dose Units Route Sig Qty Days Start Date Discontinued Date Status Instructions Bupropion Hcl 150 MG PO At Bedtime February 15, 2022 Active Cetirizine 40 MG PO At Bedtime February 15, 2022 Active Gabapentin 300 MG PO Twice Daily February 15, 2022 Active Problem List Active Problems Medical Problem Onset Date Status 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 Advance Directives Advance Directive Response Recorded Date/ Time Patient has Advance Directiv e *Q No, Patient Declines Advance Directive Information February 15, 2022 7:13pm Chief Complaint and Reason for Visit Encounter Admit Date Chief Complaint Reason for V isit Departed Emergency February 15, 2022 6:22pm FISH LAURITA RIGH T FOOT Hospital Discharge Instructions Query Response Comment Date/Time Mode of Departure, General Discharge Ambulatory 02/15/2022 20:44 Accompanied By Spouse 02/15/2022 20 :44 Patient Education Completed Yes 02/15/2022 20:44 Personal Belongings with Patient Yes 02/15/2022 20:44 External Facility Requested Documentation No 02/15/2022 20:44 Prescriptions Given to Patient Yes 02/15/2022 20:44 Medications Given to Patient Yes 02/15/2022 20:44 Additional Discharge Instructions You dumont ve been evaluated and treated for a fish hook to the right heel. X-ray showed hook was not imbedded in bone, only soft tissues. The hook was retracted without further puncture or opening. Keep the foot clean and dry for 48 hours. Keep puncture wound open to air when sleeping or resting. Keep the wound covered if walking or it could get dirty. Wash with soap and water twice a day starting in 24 hours. Dry and apply bacitracin twice a day until healed. Take ibuprofen 800mg by mouth every 8 hours with food as needed for pain. You can also take tylenol as needed for pain. Return for any issues or concerns. Fill prescription for antibiotic for signs of fever, chills, redness or pus-like drainage to puncture wound. Instruction/Education Provided Puncture Wound, Xstx-xg-Ivxy Hospital Discharge Medications Medication Dose Units Route Sig Qty Days Order Date Status Ins tructions Bupropion Hcl 150 MG PO At Bedtime February 15, 2022 Active Cetirizine 40 MG PO At Bedtime February 15, 2022 Ac tive Gabapentin 300 MG PO Twice Daily February 15, 2022 A ctive Encounters Encounter Facility Location Admit Date Discharge Date Nova womack Provider Departed Emergency [facility] Emergency Dept - M February 15, 2022 6:22pm February 15, 2022 8:44pm Functional Status No known functional status. Immunizations Name Date Given Type Tdap - reduced diphtheria & pertussis February 15 Administered Plan of Care Instructions Puncture Wound, Jkaj-el-Eiou Social History Query Response Date Recorded Comment Alcohol Use Frequency Monthly February 15, 2022 7:13p m Alcohol Use History Yes February 15, 2022 7:13pm Recreational Drug Use History No February 15 7:13pm Tobacco Use Status *Q Never Tobacco User February 15, 2022 7:13pm Tobacco Use/Smoking Within L ast 30 Days No February 15, 2022 7:13pm Query Response Start Date Stop Date Tobacco Use Status *Q Never Tobacco User Vital Signs Vital Reading Result Reference Range Collection Date/Time Height 1.63 m February 15, 2022 6 :55pm Weight 117.934 kg February 15, 2022 6 :55pm Temperature 97.3 F 96.9 F-100.5 F February 15, 2022 7:21pm Pulse 92 BPM 60-100 February 15, 2022 7 :21pm Respiration 18 RPM 12-20 February 15, 2022 7 :21pm Pulse Oximetry 99 % 95-100 February 15, 2022 7:21pm Blood Pressure Systolic 137 90-140 February 15, 2022 7:21pm Blood Pressure Diastolic 79 60-90 Regino 2021 7:21pm Body Mass Index 44.6 February 15 6:55pm
--- OUTSIDE RECORDS SUMMARY | 2024-08-16 14:58 | XMS_ITS | Continuity of Care Document ---
Author Name SALO Alcantar [facility] Address [address] [place] [address] Organization [facility] Address [address] [place] [address] Care Team Providers Care Assistant Nurse Manager Name Role Phone Thelma Kunz Rounding Physician [...] Date Status Calcaneous Rt February 15, 2022 completed Relevant Diagnostic Tests and/or Laboratory Data No [...] to puncture wound. Instruction/Education Provided Puncture Wound, Ofpo-ro-Ruti [facility] Discharge Medications Medication Dose Units Route Sig Qty Days Order Date Status Ins tructions Bupropion Hcl 150 MG PO At Bedtime February 15, 2022 Active Cetirizine 40 MG PO At Bedtime February 15, 2022 Ac tive Gabapentin 300 MG PO Twice Daily February 15, 2022 A ctive Encounters Encounter Facility Location Admit Date Discharge Date Nova womack Provider Departed Emergency [facility] Emergency Dept - M February 15, 2022 6:22pm February 15, 2022 8:44pm Functional Status No known functional status. Immunizations Name Date Given Type Tdap - reduced diphtheria & pertussis February 15 Administered Plan of Care Instructions Puncture Wound, Qvlr-ay-Vxcy Social History Query Response Date Recorded Comment [...]
--- OUTSIDE RECORDS SUMMARY | 2024-08-16 14:59 | XMS_ITS | Data Portability ---
Author Organization [place] [facility] Address [address] [place] [address] Care Team Providers Care Electronic Installer Name Role Phone JAKE NUNES Primary Care Provider JUANA MENESES Referring Provider [phone] Assessment Encounter Date Assessment Date Assessment LastModified [...] was reviewed and discussed with the patient. Not available 05/10/2020 16:44:26 06/22/2020 06/22/2020 Patient [...] medicine referral 2019 [address] Nunes, [address] [place], [address], 0 10:54:34 Procedures None recorded. Surgeries None recorded. Imaging None recorded. Medication Orders None recorded. Patient TargetsNo targets recorded. Patient InstructionsNo instructions recorded. Reason for Referral Sleep Medicine Referral for Obstructive sleep apnea of adult Pt is using an oral appliance for DANIELLE and needs sleep study to verify effectiveness Referring Physician: Светлана Block, Pain Management, Encounter Date: 07/12/2020 Problems Name Problem SNOMED Code Status Onset Date Resolution Date Notes Provider Name and Address Organization Details Recorded Time Obstructive sleep apnea of adult 7754380323118 Active 2019 AHI=8. 1 Светлана felix [facility] 0 16:43:57 Snoring 57397746 Active 2019 [facility] 16:43:48 Problem Notes None recorded. Procedures Surgical History Date Name Laterality Status Provider Name and Address Organization Details Recorded Time 0 Oral appliance therapy for sleep apnea completed Jhonathan Thomas [facility] 06/22/2020 15:45:39 Imaging Results None recorded. Procedure Notes None recorded. Medical Equipment None Reported. Allergies Allergen ID Allergen Name Allergen Category Reaction Reaction Severity Criticality Documentation Date Start Date Code Code System Note Provider Name and Address Organization Details Recorded Time 68155 amoxicill in medicatio n Not available Not available Not available 05/10/2020 723 RxNorm Fernando felix [facility] 0 14:52:04 53124 hydrocodo ne Not available Not available Not available Not available 05/10/2020 5489 RxNorm Fernando felix [facility] 0 14:52:12 [...] [degF] 86 /min 162.56 cm 44.6 kg/m2 892951. 02 g 150 mm[Hg] 90 mm[Hg] Fernando Davila [facility] 0 14:53:04 Date Recorded Body height Body mass index (BMI) Body weight Body temperature Provider Name and Address Organization Details Last Updated DateTime 06/22/2020 162.56 cm 44.6 kg/m2 350437.02 g 94.6 [degF] Jhonathan Thomas [facility] 06/22/2020 15:41:20 Date Recorded Body height Heart rate Provider Name and Address Organization Details Last Updated DateTime 06/26/2020 162.56 cm 97 /min Jhonathan Thomas [facility] 06/26/2020 15:02:17 Date Recorded Body height Body temperature Heart rate Systolic blood pressure Diastolic blood pressure Provider Name and Address Organization Details Last Updated DateTime 07/12/2020 162.56 cm 97.9 [degF] 71 /min 133 mm[Hg] 77 mm[Hg] Jhonathan Faulknerguero [facility] 0 09:44:34 Social History Question Answer Notes LastModified by Organizat ion Details LastModified Time Tobacco Smoking Status Never Smoker Fernando Cowanferny felix [facility] 05/10/2020 14:55:44 [...] Low jrancourt Information not available 06/26/2020 Sex: Unknown Functional Status None recorded. Mental Status None recorded. Family History Relationship Description Onset Age of this Age Resolved Age Notes LastModified by Organization Details LastModified Time Father No current problems or disability Not available 05/2020 14:55:18 Mother No current problems or disability Not available 05/2020 14:55:18 Medical History Condition Response Coronary Artery Disease N Other N Gout N Chronic fatigue syndrome N Hyperthyroidism N MRSA N Premenstrual syndrome (PMS) N Head Trauma/Injury N Emphysema N Irritable bowel syndrome N Hypothyroidism N Depression Y COPD N Lung Disease N Glaucoma N Pneumonia N Pacemaker N Obstructive Sleep [...] Meningitis N Pancreatic disease N Heart Attack ([place]) N Stomach Ulcers N Back pain Y Diabetes N Bleeding Disorder Y Seizures/Epilepsy N Sjogren's syndrome N Mental Health Concerns N Tuberculosis N AIDS/HIV N History of radiation therapy N Hyperlipidemia N Dementia N Asthma N Physical or sexual abuse N Substance Abuse N Peripheral Vascular Disease N Psoriasis N Reflux/GERD Y Vertigo N Sleep Disorder N Aneurysm N Hepatitis N Heart Disease N Neuropathy N Pulmonary Embolism N Hypertension N Osteoporosis N Gynecological HistoryNo gynecological history recorded. Obstetrics History GPAL:G 0 P 0 0 0 0 Past Encounters Encounter ID Performer Location Encounter Start Date Encounter Closed Date Diagnosis/Indication Diagnosis SNOMED-CT Code Diagnosis ICD10 Code [id number] Светлана Mik wallace [address] [place] [id number] 05/10/2020 14:27:40 05/10/2020 17:01:34 Obstructive sleep apnea of adult 2493339566 103 G47.33 Snoring 83388930 R06.83 [id number] Светланаdamir Ray e [address] [place] [id number] 06/22/2020 15:38:11 06/22/2020 16:31:54 Snoring 00179410 R06.83 Obstructiv e sleep apnea of adult 9645290065 103 G47.33 [id number] Светланаdamir Ray e [address] [place] [id number] 06/26/2020 14:59:28 06/26/2020 16:41:30 Snoring 55722104 R06.83 Obstructiv e sleep apnea of adult 6232774826 103 G47.33 [id number] Светланаdamir Ray e [address] [place] [id number] 07/12/2020 09:31:29 07/12/2020 10:41:37 Snoring 40971351 R06.83 Obstructiv e sleep apnea of adult 6694644826 103 G47.33 Health Concerns Section Related Observation LastModified by Organization Detai ls LastModified Time None Recorded Concern Status LastModified by Organization Details LastModified Time None Recorded Advance Directives Directive None Recorded Payers Encounter Date Sequence Insurance Name Policy Number Policy Santa Covered Member ID Santa Member ID Guarantor Name 05/10/2020 1 [facility] [id number] Madi Foster [id number] Madi Foster 06/22/2020 1 [facility] [id number] Madi Foster [id number] Madi Foster 06/26/2020 1 [facility] [id number] Madi Foster [id number] Madi Foster 07/12/2020 1 [facility] [id number] Madi Foster [id number] Madi Foster Notes Date Note Type Note Provider Name and Address Organization Details Recorded Time 05/10/2020 text/html Sleep ApneaRepor kim bypatient.Severity/stat us:mild; severity of apnea: AHI=8.1; date of last egnazxtoopfdsud78-68-84; lowest oxygen saturation 80-91% Patient concerns - Oral appliance therapyoral appliance therapy is ;intolerant of CPAP Prior Historyobesity temporomandibular joint symptomspain in the jaw;grinding teeth Interference:loud snoring Aggravating factors:worse with certain sleeping positions Prior opinionpulmonology Patient presents today for evaluation of the possible use of a mandibular advancement oral appliance to address their {{upper airway resistance mild obstructive sleep apnea* moderate obstructive sleep apnea severe obstructive sleep apnea}} {{and snoring*}}. Patient has {{previously not treated* trialed CPAP trialed CPAP and was unable to tolerate it trialed oral appliance therapy}}. Today their Decker Sleepiness Scale score was a {{0 1 2 3 4 5 6 7 8 9 1 0 11 12 13 14* 15 16 17 18 19 20 21}}. The patient is predominantly a {{side* back stomach}} sleeper. There is {{no history of TMD related symptoms including jaw pain, jaw joint noises or difficulty with mouth opening a known history of TMJ symptoms including jaw joint noises a known history of TMJ symptoms including jaw joint noises and jaw pain*}}. There is {{no awareness awareness*}} of clenching and/or grinding of their teeth. [...] a chiropractor for neck adjustments. JENNIFER Swanson [facility] 05/10/2020 16:52:18 06/22/2020 text/html Sleep ApneaRepor kim bypatient.Severity/stat us:mild; severity of apnea: AHI=8.1; date of last qxksypvkdiqfzrn91-10-00 19; lowest oxygen saturation 80-91% Patient concerns - Oral appliance therapyoral appliance therapy is ;intolerant of CPAP Prior Historyobesity temporomandibular joint symptomspain in the jaw;grinding teeth Interference:loud snoring Aggravating factors:worse with certain sleeping positions Prior opinionpulmonology Patient presents today for insertion of a {{mandibular advancement (Dorsal)# mandibular stabilization maxillary stabilization repositio vidhi mandibular advancement}} oral appliance. They note {{no changes in* improved worsening} } symptoms which along with prior data was reviewed, updated and documented in the patient history of present illness. Had an for occipital nerve block this morning for her headaches. JENNIFER Swanson [facility] 06/22/2020 16:47:18 06/26/2020 text/html Patient is here today because splint is tight on upper right lateral when she removes the appliance JENNIFER Swanson [facility] 06/27/2020 07:31:32 07/12/2020 text/html Sleep ApneaRepor kim bypatient.Severity/stat us:mild; severity of apnea: AHI=8.1; date of last oxnjqoewytqmrfx26-97-65 19; lowest oxygen saturation 80-91% Patient concerns - Oral appliance therapyoral appliance therapy is ;intolerant of CPAP Prior Historyobesity temporomandibular joint symptomspain in the jaw;grinding teeth Interference:loud snoring Aggravating factors:worse with certain sleeping positions Prior opinionpulmonology Patient presents today for follow-up. (S)he is {{effectively using* using struggling to use not using}} the mandibular advancement oral appliance. They note {{no changes in improved* worsening} } symptoms which along with prior data was reviewed, updated and documented in the patient history of present illness. Subjectively they believe the appliance to be {{very effective* effective pa rtially effective non-effective }} in improving sleep quality. (S)he recognizes {{improved* unchanged}} daytime tiredness and {{improvement* no improvement}} in restorative sleep. (S)he {{denies* has mild has significant}} side effects {{including jaw pain including bite changes* including aggravation of a preexisting TMD}}. {{(S)he is using the morning bite field staff manager as recommended* (S)he is not using the morning bite field staff manager as recommended}}. Adjustments to the oral appliance are {{believed to be necessary* not felt necessary}}.Soni reports that she is very happy with [...] eats but that it is not bothersome. Decker today is 7. JENNIFER Swanson - [facility] 07/12/2020 10:45:10 OBGyn Episode No OBEpisode recorded.
== END 2024-12-14 23:59 | disposition home or self-care (01) ==
PROVIDERS: PCP Physician Assistant Medical; Visit Provider Physician Assistant Medical
DX: M62.89 Other specified disorders of muscle (principal); H81.10 Benign paroxysmal vertigo, unspecified ear; M54.40 Lumbago with sciatica, unspecified side; G89.29 Other chronic pain; Z51.89 Encounter for other specified aftercare
CPT/HCPCS: 97110; 97112; 97140; 97162; 97535

== ENCOUNTER 2025-01-18 15:54 | Outpatient (CLI) | payer BC, SELFPAY ==
--- NOTE | 2025-01-18 16:00 | CRLHL7_ITS ---
For Patients: As a result of the Century Cures Act, medical imaging exams and procedure reports are released immediately into your electronic medical record. You may view this report before your referring provider. If you have questions, please contact your health care provider. CLINICAL HISTORY: Right lower quadrant pain COMPARISON: 02/06/2022 TECHNIQUE: 2D silver-scale ultrasound. In addition, color Doppler and spectral Doppler analysis was performed of the pelvis using a transabdominal and transvaginal approach. Transvaginal imaging performed to better visualize the endometrial stripe and ovaries. FINDINGS: The myometrium has a normal uniform echotexture. The uterus measures 7.7 x 3.5 x 4.7 cm. The endometrial lining is not thickened. IUD is present in the endometrial canal within the uterine fundus. The right arm may extend into the myometrium. The right ovary measures 4.5 x 2.2 x 2.8 cm in size and the left ovary measures 3.0 x 2.0 x 2.3 cm. The ovaries demonstrate normal arterial and venous blood flow on color Doppler and spectral Doppler analysis. There are no suspicious fluid collections within the cul-de-sac. IMPRESSION: IUD is present in the fundal endometrial canal. The right arm may extend into the right side of the myometrium. Normal ovaries. Dictated by Júnior Sifuentes MD @ 01/19/2025 9:14:36 AM (Electronically Signed)
== END 2025-01-18 15:55 | disposition home or self-care (01) ==
PROVIDERS: PCP Physician Assistant Medical; Visit Provider Physician Assistant Medical
DX: R10.31 Right lower quadrant pain (principal)
CPT/HCPCS: 76830; 76856; 93976

== ENCOUNTER 2025-08-10 22:05 | Emergency (ER) | payer BC, SELFPAY ==
--- OUTSIDE RECORDS SUMMARY | 2025-08-10 22:07 | XMS_ITS | CCD ---
Author Name Interface, F8Slaudap lity Address [address] [address] Organization [facility] Address [address] [address] Care Team Providers Care Kindergarten Instructional Assistant Name Role Phone Carlos REYES, LGC, Tiny Unavailable Unavailrenea Rice MD, El Unavailable Unavailable Allergies and Adverse Reactions Medication/Group Name Reaction Severity Date hydrocodone 03/08/20203199bwvuugsoxnv17/08/2020 Reason for Visit 1YRRC - [address] PRIOR - TBS IN AUGUST 2021 Medications Date Name Route Dose Frequency Instructions Start Date End Date Status Fill Status Indication 03/08/2020 Omeprazole Oral Delayed Release Capsule po daily dyscke5103/08/2020Sertraline Ebmzaxdcmpgsyjklx59/08/2020Hydroxyzine HCl Oralpo byabnnrmqwu19/08/2020Cetirizine Oralpobidactive Problems Diagnosis Status Date of Diagnosis Resolution Date Family history of colorectal cancer Active History of colonic polypActiveFAMILY HISTORY OF COLON POLYPActiveFamily history of pancreatic cancerActiveGenetic counselingActiveSolitary pulmonary nodule Active Social History Date Name Value 03/08/2020 Sex Female
--- OUTSIDE RECORDS SUMMARY | 2025-08-10 22:07 | XMS_ITS | Clinical Summary ---
Author Organization [facility] Address [address] [place] [address] Care Team Providers Care Tattoo Technician Name Role Phone Lee Hemphill PA-C Primary Care Provider [phone] Allergies No known active allergies Medications No known medications Social History Tobacco UseTypesPacks/DayYears UsedDateSmoking Tobacco: Never AssessedAdolescent EducationAnswerDate RecordedGetting School Help NeededNot on file05/24/2023 CommentsUnknownSex and Gender InformationValueDate RecordedSex Assigned at BirthNot on fileLegal AwtNcvwgk78/03/2024 9:34 AM CSTGender IdentityNot on fileSexual OrientationNot on file Plan of Treatment Not on file Insurance Care Teams Team MemberRelationshipSpecialtyStart DateEnd Date Lee Hemphill PA-C [place] [id number] [address] [facility] [id number] [facility] - General02/16/20
[2025-08-10 22:11] VITALS: BP 137/88; PULSE 81; RESP 18; TEMP 36.6; O2SAT 99; BMI 41.2
--- NOTE | 2025-08-10 22:41 | ED.GENADULT ---
HPI - General Adult General Time Seen by Provider: 22:41 Date Seen: 08/10/25 Chief complaint: Neck Injury/Pain Stated complaint: neck pain/clotting disorder Time Seen by Provider: 08/10/25 22:39 Source: patient Mode of arrival: ambulatory History of Present Illness HPI narrative: Soni is a 40 yo female who has a past medical history of factor 5 Leiden presents to the ED for evaluation of neck pain. Patient complains of left-sided neck and shoulder pain that is been ongoing since Friday. Patient states that she did not sleep well night, and woke up sleeping on her neck in a weird position. Patient woke up Friday morning with a stiff neck. Patient states that she has been taking Tylenol, ibuprofen, muscle relaxant at bedtime, as well as icing it, massaging, with no improvement of symptoms. Patient states that she noticed last night she had some weakness in her left arm and noted her left arm seemed like it was jelly. 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 Patient reports she noticed ongoing pain as well as weakness in her left arm so initially went to [facility] who recommended her go to the emergency department for an MRI. Patient denies any fever, chills, no other significant trauma or injury. Patient is able to move her arm and has no focal weakness but just feels as if her arm is weaker than normal. Patient is not on chronic anticoagulation. Related Data Home Medications ?Medication ?Instructions ?Recorded ?Confirmed cetirizine 10 mg tablet (All Day 10 mg PO QDAY PRN 03/22/22 03/21/25 Allergy (cetirizine)) Previous Rx's ?Medication ?Instructions ?Recorded hydroxyzine HCl 25 mg tablet 25 mg PO QID PRN itching #90 tabs 05/09/23 cyclobenzaprine 10 mg tablet 10 mg PO TID #90 tabs 04/29/24 meclizine 25 mg tablet 25 mg PO TID #30 tabs 07/08/24 omeprazole 40 mg capsule,delayed 40 mg PO BID #180 caps 08/24/24 release gabapentin 300 mg capsule 300 mg PO .ud #270 caps 11/17/24 meclizine 25 mg tablet 25 mg PO .tid prn #30 tabs 03/21/25 gabapentin 300 mg capsule 300 mg PO .ud #270 caps 06/14/25 Allergies Allergy/AdvReac Type Severity Reaction Status Date / Time amoxicillin Allergy Mild Hives Verified 03/21/25 07:11 cat dander Allergy Mild Verified 03/21/25 07:11 dog dander Allergy Mild Verified 03/21/25 07:11 hydrocodone Allergy Mild itching Verified 03/21/25 07:11 Molds & Smuts Allergy Intermediate Hives, Uncoded 03/21/25 07:11 throat swelling Dust Allergy Mild Sneezing Uncoded 03/21/25 07:11 Review of Systems Narrative: Past medical history, past surgical history, medications, allergies, family history, and social history were reviewed with the patient. No additional pertinent items. A medically appropriate review of systems was performed with pertinent positives and negatives noted in HPI, all other systems negative. [facility] Medical History (Updated 08/10/25 @ 23:38 by Deepa Brown MD) URI (upper respiratory infection) ?J06.9 - Acute upper respiratory infection, unspecified (ICD-10) Tachycardia ?R00.0 - Tachycardia, unspecified (ICD-10) Sinusitis ?J32.9 - Chronic sinusitis, unspecified (ICD-10) Rectocele ?N81.6 - Rectocele (ICD-10) Urticaria ?L50.9 - Urticaria, unspecified (ICD-10) Otalgia ?H92.09 - Otalgia, unspecified ear (ICD-10) Surgical History (Updated 10/14/23 @ 13:05 by Lee Hemphill PA-C) History of knee surgery ?Z98.890 - Other specified postprocedural states (ICD-10) History of colonoscopy ?Z98.890 - Other specified postprocedural states (ICD-10) History of tonsillectomy and adenoidectomy ?Z90.89 - Acquired absence of other organs (ICD-10) History of sinus surgery ?Z98.890 - Other specified postprocedural states (ICD-10) History of knee surgery ?Z98.890 - Other specified postprocedural states (ICD-10) History of esophagogastroduodenoscopy (EGD) ?Z98.890 - Other specified postprocedural states (ICD-10) Family History Mother Hx of blood clots Family/Other Factor V Leiden mutation High blood pressure Social History Narrative: Non-smoker Occasional alcohol consumption Smoking Status: Never smoker Do you use any of these nicotine containing products: None Second hand tobacco smoke exposure: No How often do you have a drink containing alcohol: never How often do you have six or more drinks on one occasion: Never AUDIT-C Alcohol total score: 0 Non-prescribed substance use: denies use Exam Narrative: Exam Narrative: General: Afebrile, in distress secondary to pain HEENT: Normocephalic, atraumatic, PERRL, EOMI, conjunctiva normal. MMM Neck: supple, no midline TTP, patient reports pain left lateral neck and left upper shoulder blade that is worse with movement Cardio: regular rate. regular rhythm Resp: Normal work of breathing, no respiratory distress, lungs clear bilaterally, no wheezing, rhonchi, rales Chest/Back: no visual signs of trauma, no midline tenderness, no CVA tenderness Abdomen: soft, non distension, no tenderness, no peritoneal signs Neuro: alert and fully oriented. CN II-XII intact. Left upper extremity slightly weaker than right, no sensory deficit MSK: no deformities. Normal range of motion Integumentary/Skin: no rash visualized, normal color Psych: normal affect, normal behavior Const: Vital Signs, click to edit/add: Vital Signs - 24 hr 08/10/25 22:11 08/10/25 23:43 08/10/25 23:44 Temperature 97.8 F 97.8 F 97.8 F Pulse Rate [Pulse Oximeter] 81 79 79 Respiratory Rate 18 18 18 Blood Pressure [Ri ght Upper Arm] 137/88 131/81 131/81 Pulse Oximetry 99 99 Oxygen Delivery Me thod Room Air Room Air Course Vital Signs Vital signs: Initial Vital Signs Temperature 97.8 F 08/10/25 22:11 Temperature Source Temporal Artery Scan 08/10/25 22:11 Pulse Rate 81 08/10/25 22:11 Pulse Rhythm Regular 08/10/25 22:11 Respiratory Rate 18 12/10/25 22:11 Blood Pressure 137/88 08/10/25 22:11 Blood Pressure Mean 104 08/10/25 22:11 Blood Pressure Position Sitting 08/10/25 22:11 Pulse Oximetry 99 08/10/25 22:11 Oxygen Delivery Method Room Air 08/10/25 22:11 Vital Signs Temperature 97.8 F 08/10/25 22:11 Pulse Rate 81 08/10/25 22:11 Respiratory Rate 18 08/10/25 22:11 Blood Pressure 137/88 08/10/25 22:11 Pulse Oximetry 99 08/10/25 22:11 Oxygen Delivery Method Room Air 08/10/25 22:11 Temperature 97.8 F 08/10/25 23:44 Pulse Rate 79 08/10/25 23:44 Respiratory Rate 18 08/10/25 23:44 Blood Pressure 131/81 08/10/25 23:44 Pulse Oximetry 99 08/10/25 23:43 Oxygen Delivery Method Room Air 08/10/25 23:43 Medical Decision Making [facility] Narrative Medical decision making narrative: Soni is a 40 yo female who has a past medical history of factor 5 Leiden presents to the ED for evaluation of neck pain. Upon arrival patient is nontoxic appearing, afebrile, in distress secondary to pain. On examination patient with pain in discomfort to her left lateral neck and left upper shoulder pain that is worse with movement. Patient also noted to be slightly more weak on the left than the right. Patient still able to use her left arm with no focal deficits. Differential diagnosis includes but is not limited to musculoskeletal versus inflammatory versus herniated disc versus cord compression vs stenosis versus less likely fracture among others. I discussed with patient at this time we are unable to do an MRI of her cervical spine in the emergency department (overnight). Patient states that she only came to the emergency department to get an MRI tonight and would not have come if she knew we could not do the MRI. I did discuss with patient and considered further evaluation and testing with ultrasound to rule out DVT as well as CT cervical spine and CTA of the head and neck however at this time patient declined. I did reach out to [facility] who are able to get an MRI tonight however patient states that she does not want to go to [facility] and would prefer to go home and follow-up outpatient for an MRI. I did place an order for an outpatient MRI with results to be sent to her primary care provider Dr. Lee Hemphill. Patient agrees with discharge with strict return precautions, close outpatient follow-up. Will continue on medications and prescriptions given for oxycodone, prednisone. Strict return precautions discussed. Patient understands and agrees the plan Discharge Plan Discharge Clinical Impression: Neck pain on left side, Left arm weakness Patient Disposition: Home, Self-Care Condition: Stable Additional Instructions: Please follow-up with your primary care provider in the next 2-3 days for further evaluation and follow-up. Please call to schedule appointment. Please follow up for outpatient MRI. An order has been placed and they should call you in the morning to schedule. Please continue old medications. Please take steroids daily as directed. Please take oxycodone 1 tablet as needed for severe pain. Please return to the emergency department if you develop severe pain, weakness, tingling, numbness, worsening symptoms. It was a pleasure taking care of you today. We hope you feel better soon. Prescriptions: No Action meclizine 25 mg tablet 25 mg PO TID Qty: 30 0RF meclizine 25 mg tablet 25 mg PO .tid prn Qty: 30 0RF hydroxyzine HCl 25 mg tablet 25 mg PO QID PRN (Reason: itching) Qty: 90 1RF Rx Instructions: 25-50 MG, PO, Q6H PRN cyclobenzaprine 10 mg tablet 10 mg PO TID Qty: 90 0RF cetirizine [All Day Allergy (cetirizine)] 10 mg tablet 10 mg PO QDAY PRN Rx Instructions: 20 MG, PO, BID omeprazole 40 mg capsule,delayed release(DR/EC) 40 mg PO BID Qty: 180 3RF gabapentin 300 mg capsule 300 mg PO .ud Qty: 270 0RF Rx Instructions: 300mg in am and 600mg at bedtime gabapentin 300 mg capsule 300 mg PO .ud Qty: 270 1RF Rx Instructions: 300mg in am and 600mg at bedtime Follow Up/Referrals: Lee Hemphill PA-C [Primary Care Provider, Family Practice] Stand Alone Forms: [employer] Info Instructions
--- OUTSIDE RECORDS SUMMARY | 2025-08-10 23:09 | XMS_ITS | CCD ---
Author Name Interface, [id number] lity Address [address] [facility] [address] [address] Organization [facility] Address [address] [facility] [address] [facility] [address] [address] Care Team Providers Care Tobacco Grader Name Role Phone Carlos REYES, LGC, Tiny Unavailable Unavailrenea Rice MD, El Unavailable Unavailable Allergies and Adverse Reactions Medication/Group Name Reaction Severity Date hydrocodone 03/08/20203779phbnrnhuxqo44/08/2020 Reason for Visit 1YRRC - [address] PRIOR - TBS IN AUGUST 2021 Medications Date Name Route Dose Frequency Instructions Start Date End Date Status Fill Status Indication 03/08/2020 Omeprazole Oral Delayed Release Capsule po daily eknhvf0703/08/2020Sertraline Ekpverczmitzxjgey58/08/2020Hydroxyzine HCl Oralpo zgpmdhgxytu57/08/2020Cetirizine Oralpobidactive Problems Diagnosis Status Date of Diagnosis Resolution Date Family history of colorectal cancer Active History of colonic polypActiveFAMILY HISTORY OF COLON POLYPActiveFamily history of pancreatic cancerActiveGenetic counselingActiveSolitary pulmonary nodule Active Social History Date Name Value 03/08/2020 Sex Female
--- OUTSIDE RECORDS SUMMARY | 2025-08-10 23:10 | XMS_ITS | CCD ---
Author Name Interface, [id number] lity Address [address] [facility] [address] [address] Organization [facility] Address [address] [facility] [address] [address] Care Team Providers Care Adobe Layer Helper Name Role Phone Carlos REYES, LGC, Tiny Unavailable Unavailrenea Rice MD, El Unavailable Unavailable Allergies and Adverse Reactions Medication/Group Name Reaction Severity Date hydrocodone 03/08/20200333nrfjhecfvev07/08/2020 Reason for Visit 1YRRC - [address] PRIOR - TBS IN AUGUST 2021 Medications Date Name Route Dose Frequency Instructions Start Date End Date Status Fill Status Indication 03/08/2020 Omeprazole Oral Delayed Release Capsule po daily bpioyj6203/08/2020Sertraline Zvvhmcuojelsarkup75/08/2020Hydroxyzine HCl Oralpo doasatbetiq69/08/2020Cetirizine Oralpobidactive Problems Diagnosis Status Date of Diagnosis Resolution Date Family history of colorectal cancer Active History of colonic polypActiveFAMILY HISTORY OF COLON POLYPActiveFamily history of pancreatic cancerActiveGenetic counselingActiveSolitary pulmonary nodule Active Social History Date Name Value 03/08/2020 Sex Female
[2025-08-10 23:43] VITALS: BP 131/81; PULSE 79; RESP 18; TEMP 36.6; O2SAT 99
[2025-08-10 23:44] VITALS: BP 131/81; PULSE 79; RESP 18; TEMP 36.6
== END 2025-08-10 23:44 | disposition home or self-care (01) ==
PROVIDERS: Emergency Provider Emergency Medicine; PCP Physician Assistant Medical
DX: M54.2 Cervicalgia (principal); D68.4 Acquired coagulation factor deficiency
CPT/HCPCS: 99283; 99285

== ENCOUNTER 2025-08-11 10:31 | Emergency (ER) | payer BC, SELFPAY ==
[2025-08-11 10:43] VITALS: BP 128/84; PULSE 86; RESP 18; TEMP 36.9; O2SAT 99; BMI 42.7
--- NOTE | 2025-08-11 11:05 | ED.GENADULT ---
HPI - General Adult General Date Seen: 08/11/25 Chief complaint: Neck Injury/Pain Stated complaint: neck pain Time Seen by Provider: 08/11/25 11:04 History of Present Illness HPI narrative: 40 yo F who has a past medical history of factor 5 Leiden. She returns to the ER today evaluation of neck pain, requesting an MRI. She was seen on the overnight shift yesterday evening. She has pain in her left neck and shoulder ongoing since last Friday. Also some left arm weakness. She had already been seen at a clinic in [facility] who told her she should go to the emergency department for MRI. She was seen in the ER last night. MRI is not available overnight. The overnight provider did reach out to the ER in [place] to arrange an MRI at that facility but the patient did not want to go there. Dr. Brown ordered an outpatient MRI for this patient. However the patient reports that MRI cannot be done for another couple of weeks so she came back to the ER today desiring an MRI. She has ongoing pain in left side of her neck and left trapezius and down her left arm. Also weakness in her left arm with a little bit of trouble lifting her arm out to the side, gripping with her hand, and holding herself up. She tried to do some leaning back and putting weight on her tricep last night but her left arm gave out on her. She does not have any fever. No known direct trauma. Symptoms actually started last Friday when she woke up in the morning and beginning steadily worse since then. She has no history of cervical spine surgery. No history of diabetes or immunosuppression. She does have a history of factor 5 Leiden. She is not currently anticoagulated. Related Data Home Medications ?Medication ?Instructions ?Recorded ?Confirmed cetirizine 10 mg tablet (All Day 10 mg PO QDAY PRN 03/22/22 08/11/25 Allergy (cetirizine)) oxycodone-acetaminophen 5 mg-325 1 tab PO Q4-6H PRN 08/11/25 08/11/25 mg tablet (Percocet) prednisone 20 mg tablet 40 mg PO BID 08/11/25 08/11/25 Previous Rx's ?Medication ?Instructions ?Recorded hydroxyzine HCl 25 mg tablet 25 mg PO QID PRN itching #90 tabs 05/09/23 cyclobenzaprine 10 mg tablet 10 mg PO TID #90 tabs 04/29/24 meclizine 25 mg tablet 25 mg PO TID #30 tabs 07/08/24 omeprazole 40 mg capsule,delayed 40 mg PO BID #180 caps 08/24/24 release gabapentin 300 mg capsule 300 mg PO .ud #270 caps 11/17/24 meclizine 25 mg tablet 25 mg PO .tid prn #30 tabs 03/21/25 gabapentin 300 mg capsule 300 mg PO .ud #270 caps 06/14/25 Allergies Allergy/AdvReac Type Severity Reaction Status Date / Time amoxicillin Allergy Mild Hives Verified 03/21/25 07:11 cat dander Allergy Mild Verified 03/21/25 07:11 dog dander Allergy Mild Verified 03/21/25 07:11 hydrocodone Allergy Mild itching Verified 03/21/25 07:11 Molds & Smuts Allergy Intermediate Hives, Uncoded 03/21/25 07:11 throat swelling Dust Allergy Mild Sneezing Uncoded 03/21/25 07:11 [facility] Medical History (Updated 08/11/25 @ 13:02 by Kehinde Foster MD) URI (upper respiratory infection) ?J06.9 - Acute upper respiratory infection, unspecified (ICD-10) Tachycardia ?R00.0 - Tachycardia, unspecified (ICD-10) Sinusitis ?J32.9 - Chronic sinusitis, unspecified (ICD-10) Rectocele ?N81.6 - Rectocele (ICD-10) Urticaria ?L50.9 - Urticaria, unspecified (ICD-10) Otalgia ?H92.09 - Otalgia, unspecified ear (ICD-10) Surgical History (Updated 10/14/23 @ 13:05 by Lee Hemphill PA-C) History of knee surgery ?Z98.890 - Other specified postprocedural states (ICD-10) History of colonoscopy ?Z98.890 - Other specified postprocedural states (ICD-10) History of tonsillectomy and adenoidectomy ?Z90.89 - Acquired absence of other organs (ICD-10) History of sinus surgery ?Z98.890 - Other specified postprocedural states (ICD-10) History of knee surgery ?Z98.890 - Other specified postprocedural states (ICD-10) History of esophagogastroduodenoscopy (EGD) ?Z98.890 - Other specified postprocedural states (ICD-10) Family History Mother Hx of blood clots Family/Other Factor V Leiden mutation High blood pressure Social History Narrative: Non-smoker Occasional alcohol consumption Smoking Status: Never smoker Do you use any of these nicotine containing products: None Second hand tobacco smoke exposure: No How often do you have a drink containing alcohol: never How often do you have six or more drinks on one occasion: Never AUDIT-C Alcohol total score: 0 Non-prescribed substance use: denies use Exam Narrative: Exam Narrative: Constitutional: Appears well-developed and well-nourished. Alert. Conversant. Non toxic. HENT: Head: Atraumatic. Nose: Nose normal. Mouth/Throat: Phonation normal. No trismus. Wearing a mask. Eyes: Conjunctivae normal. EOM normal. Pupils equal, round, and reactive to light. No scleral icterus. Neck: Normal range of motion. Neck supple. No tracheal deviation present. Left paracervical and left trapezius ridge tenderness. Cardiovascular: Normal rate, regular rhythm. No gallop. No friction rub. No murmur heard. Symmetric radial artery pulses Pulmonary/Chest: Effort normal. No stridor. No respiratory distress. No wheezes. No rales. No rhonchi . No tenderness. Abdominal: Soft. Bowel sounds normal. No distension. No mass. No tenderness. No rebound. No guarding. Musculoskeletal: RUE: Normal range of motion. No tenderness. No deformity LUE: Normal range of motion. No tenderness. No deformity RLE: Normal range of motion. No edema. No tenderness. No deformity LLE: Normal range of motion. No edema. No tenderness. No deformity Lymph: No cervical adenopathy. Neurological: Alert and oriented to person, place, and time. Normal strength. CN II-VII intact. No sensory deficit. GCS eye subscore is 4. GCS verbal subscore is 5. GCS motor subscore is 6. Normal coordination Strength 4+/5 in the left deltoid, triceps, silviculture forester, finger abduction, thumb extension. 5/5 in the left bicep. Subjective paresthesias involving the left hand including C6, C7. No paresthesias involving the C5, C8, T1 dermatomes. Strength 5/5 on the right deltoid, shoulder shrug, biceps, triceps, silviculture forester, thumb extension, finger abduction. Skin: Skin is warm and dry. No rash noted. No pallor. Normal capillary refill. Psychiatric: Normal mood. Normal affect. Const: Vital Signs, click to edit/add: Vital Signs - 24 hr 08/11/25 10:43 Temperature 98.4 F Pulse Rate [Pulse Oximeter] 86 Respiratory Rate 18 Blood Pressure [Ri t Upper Arm] 128/84 Pulse Oximetry 99 Oxygen Delivery Me thod Room Air Course Vital Signs Vital signs: Initial Vital Signs Temperature 98.4 F 08/11/25 10:43 Temperature Source Temporal Artery Scan 08/11/25 10:43 Pulse Rate 86 08/11/25 10:43 Respiratory Rate 18 08/11/25 10:43 Blood Pressure 128/84 08/11/25 10:43 Blood Pressure Mean 98 08/11/25 10:43 Blood Pressure Position Sitting 08/11/25 10:43 Pulse Oximetry 99 08/11/25 10:43 Oxygen Delivery Method Room Air 08/11/25 10:43 Vital Signs Temperature 98.4 F 08/11/25 10:43 Pulse Rate 86 08/11/25 10:43 Respiratory Rate 18 08/11/25 10:43 Blood Pressure 128/84 08/11/25 10:43 Pulse Oximetry 99 08/11/25 10:43 Oxygen Delivery Method Room Air 08/11/25 10:43 Temperature 98.4 F 08/11/25 10:43 Pulse Rate 86 08/11/25 10:43 Respiratory Rate 18 08/11/25 10:43 Blood Pressure 128/84 08/11/25 10:43 Pulse Oximetry 99 08/11/25 10:43 Oxygen Delivery Method Room Air 08/11/25 10:43 Medical Decision Making [facility] Narrative Medical decision making narrative: Pleasant 40-year-old female presenting to the ER today with a 6 day history of atraumatic left neck pain, that is associated with pain and weakness affecting her left upper extremity. No history of trauma. She has no history of diabetes or immunosuppression. No recent fever. She has a history of factor 5 Leiden but is not anticoagulated. She has already been evaluated in [facility] who recommended MRI with concern for possible cervical disc disease causing a cervical radiculopathy left arm numbness. Because of left arm weakness MRI is indicated. MRIs obtained here in the ER today and does show evidence for a chronic stable C5-6 small left paracentral disc protrusion. There is also a new left foraminal extrusion likely irritating the left C7 nerve, which I think is probably the cause of her acute symptoms. Patient will need close outpatient follow-up with Orthopedics/Spine surgery. This specialty is not available here in [place]. Would recommend close outpatient follow-up with her providers at [facility] for further evaluation. [facility], [facility] the [facility] MRI is obtained here in the ER and does show evidence for a new C6-7 disc bulge with compression on the left C7 nerve root which I think is correlates with her symptoms. We were able to contact [facility], spine team and the patient has an appointment to see a loan specialist at [facility] tomorrow on 08/12 11:30 a.m.. The patient actually left the ER after obtaining or MRI. I called the patient on the phone and advised her of the findings and the follow-up. She is agreeable to follow-up tomorrow. Invited to return to the ER with any worsening symptoms. She will continue on her muscle relaxer and course of steroid that already been prescribed to her by [facility]. Questions are answered. She is comfortable with plan of care. Imaging Data MRI C spine: Attestation: I have reviewed the pertinent imaging results. Radiologist's impression: Impression: 1. At C6-7, new left foraminal disc extrusion likely irritates the exiting left C7 nerve. 2. At C5-6, stable small left paracentral disc protrusion mildly abutting the left cervical hemicord. 3. No abnormal cord signal. Discharge Plan Discharge Clinical Impression: Cervical radiculopathy at C6 Patient Disposition: Home, Self-Care Condition: Guarded Additional Instructions: Appointment scheduled at [facility] in [place] for tomorrow (08/12) at 11:30AM. New patient forms will be sent via email, it is recommended you fill those out before the appointment. [facility] [address] [place] [address] Prescriptions: No Action meclizine 25 mg tablet 25 mg PO TID Qty: 30 0RF meclizine 25 mg tablet 25 mg PO .tid prn Qty: 30 0RF hydroxyzine HCl 25 mg tablet 25 mg PO QID PRN (Reason: itching) Qty: 90 1RF Rx Instructions: 25-50 MG, PO, Q6H PRN cyclobenzaprine 10 mg tablet 10 mg PO TID Qty: 90 0RF prednisone 20 mg tablet 40 mg PO BID oxycodone-acetaminophen [Percocet] 5-325 mg tablet 1 tab PO Q4-6H PRN cetirizine [All Day Allergy (cetirizine)] 10 mg tablet 10 mg PO QDAY PRN Rx Instructions: 20 MG, PO, BID omeprazole 40 mg capsule,delayed release(DR/EC) 40 mg PO BID Qty: 180 3RF gabapentin 300 mg capsule 300 mg PO .ud Qty: 270 0RF Rx Instructions: 300mg in am and 600mg at bedtime gabapentin 300 mg capsule 300 mg PO .ud Qty: 270 1RF Rx Instructions: 300mg in am and 600mg at bedtime Follow Up/Referrals: Lee Hemphill PAMaritzaC [Primary Care Provider, Family Practice] Stand Alone Forms: Guided Delivery Systemsth Info Instructions
--- NOTE | 2025-08-11 11:07 | CRLHL7_ITS ---
For Patients: As a result of the Century Cures Act, medical imaging exams and procedure reports are released immediately into your electronic medical record. You may view this report before your referring provider. If you have questions, please contact your health care provider. Indication: Neck pain. Left arm pain and weakness. Technique: MRI of the cervical spine was performed without the use of intravenous contrast. Comparison: MRI cervical spine 08/16/2021. Findings: The vertebral body heights appear maintained without evidence of fracture. No discrete T1 hypointense marrow infiltrating process. The disc space heights appear preserved. Straightening of the cervical lordosis. No abnormal cord signal. C2-3: No spinal canal or neural foraminal narrowing. C3-4: No spinal canal or neural foraminal narrowing. C4-5: No spinal canal or neural foraminal narrowing. C5-6: Disc degeneration. Left paracentral disc protrusion mildly abuts the left cervical hemicord. Mild cord flattening. No neural foraminal narrowing. C6-7: New left foraminal disc extrusion resulting in moderately severe left neural foraminal narrowing and likely irritates the exiting left C7 nerve. C7-T1: No spinal canal or neural foraminal narrowing. Impression: 1. At C6-7, new left foraminal disc extrusion likely irritates the exiting left C7 nerve. 2. At C5-6, stable small left paracentral disc protrusion mildly abutting the left cervical hemicord. 3. No abnormal cord signal. Dictated by Colby Perez MD @ 08/11/2025 11:55:42 AM (Electronically Signed)
== END 2025-08-11 12:51 | disposition home or self-care (01) ==
PROVIDERS: Emergency Provider Emergency Medicine; PCP Physician Assistant Medical
DX: M54.12 Radiculopathy, cervical region (principal)
CPT/HCPCS: 72141; 99283; 99284